=== PATIENT | female | born 1990 | race Caucasian/White ===

== ENCOUNTER 2020-04-30 18:01 | Emergency (ER) | payer BC, OTHER ==
[~2020-04-30] VITALS: Ht 154.9 cm; Wt 54.9 kg
[2020-04-30 18:40] VITALS: BP_SYST 123
--- NOTE | 2020-04-30 18:50 | NUR ---
Patient triaged and placed in waiting room. VSS and patient appears in no acute distress at this time. Accompanied by partner, awaiting available bed, and MD notified of need for MSE.
--- NOTE | 2020-04-30 19:05 | NUR ---
Urine specimen collected and dipped.
[2020-04-30 19:10] LABS: BASOPHILS % (AUTO) 0.4 % (0.0-2.0); EOSINOPHILS % (AUTO) 0.7 % (0.0-4.0); HEMATOCRIT 39.6 % (36-48); HEMOGLOBIN 13.1 g/dL (12.0-16.0); LYMPHOCYTES # (AUTO) 1.6 K/uL (1.0-5.5); LYMPHOCYTES % (AUTO) 22.5 % (20.5-51.5); MEAN CORPUSCULAR HEMOGLOBIN 32 pg (27-31); MEAN CORPUSCULAR HGB CONC 33 % (32-36); MEAN CORPUSCULAR VOLUME 97 fL (79.0-98.0); MONOCYTES # (AUTO) 0.4 K/uL (0.0-1.0); MONOCYTES % (AUTO) 5.2 % (1.7-9.3); NEUTROPHILS # (AUTO) 5.2 K/uL (1.8-7.7); NEUTROPHILS % (AUTO) 71.2 % (40.0-70.0); PLATELET COUNT (AUTO) 206 K/uL (130-430); RED BLOOD CELL COUNT(AUTO) 4.08 MIL/uL (4.2-6.2); RED CELL DISTRIBUTION WIDTH 13.5 % (9.0-15.0); WHITE BLOOD COUNT (AUTO) 7.3 K/uL (4.8-10.8)
[2020-04-30 19:59] LABS: CREATININE 0.68 mg/dL (0.55-1.30); POTASSIUM 3.8 mmol/L (3.5-5.1)
[2020-04-30 20:06] LABS: ALBUMIN 3.8 g/dL (3.4-4.8); TOTAL BILIRUBIN 0.2 mg/dL (0.0-1.0)
--- NOTE | 2020-04-30 20:18 | NUR ---
Dr. Sanchez bedside for Pt eval
--- NOTE | 2020-04-30 20:30 | NUR ---
Pt BIB family to ED C/O vaginal bleeding which began at 5pm. The patient thinks she is 7 weeks . The patient states that she saw a small blood clot. She only experienced this one time. She denies any pelvic cramping or back pain. No nausea or vomiting. No burning/urgency/frequency
--- NOTE | 2020-04-30 21:29 | NUR ---
VSS no s/s of acute distress, Resting on gurney rails up
--- NOTE | 2020-04-30 22:39 | NUR ---
Dr. Sanchez bedside to update pt
--- NOTE | 2020-04-30 23:49 | NUR ---
Pt remains in stable condition, awaiting Dr. Sanchez's final DC info
[2020-05-01 00:40] VITALS: BP_SYST 123
--- NOTE | 2020-05-01 00:40 | NUR ---
Patient given written and verbal discharge instructions and verbalizes understanding. ER MD discussed with patient the results and treatment provided. Patient in stable condition. ID arm band removed. Patient educated on pain management and to follow up with PMD. Pain Scale 0/10 Opportunity for questions provided and answered.
== END 2020-05-01 00:40 | disposition home or self-care (01) ==
LOC: SED 18:01
DX: O20.9 Hemorrhage in early pregnancy, unspecified (principal); O34.81 Maternal care for other abnormalities of pelvic organs, first trimester; N83.299 Other ovarian cyst, unspecified side; Z3A.01 Less than 8 weeks gestation of pregnancy
CPT/HCPCS: 36415; 76801; 76817; 80053; 81002; 81025; 84702-TC; 85025; 99284